=== PATIENT | male | born 1960 | race Caucasian/White ===

== ENCOUNTER 2017-02-17 06:28 | Emergency (ER) | payer MEDICAID ==
[~2017-02-17] VITALS: Ht 177.8 cm; Wt 72.0 kg
[~2017-02-17 06:28] MED LIST: HYDR-3965 PO; LORA0.5T PO; METH5TAB2 PO; NO HOME MEDS
[2017-02-17] MEDS ORDERED: HYDROcodone/acetaminophen 5mg/325mg tablet PO ONE (08:35)
[2017-02-17 09:23] VITALS: BP 126/100
== END 2017-02-17 09:05 | disposition home or self-care (01) ==
LOC: ER 06:29
DX: G89.29 Other chronic pain (principal); M79.605 Pain in left leg; I10 Essential (primary) hypertension; F17.200 Nicotine dependence, unspecified, uncomplicated; F15.10 Other stimulant abuse, uncomplicated; F11.10 Opioid abuse, uncomplicated; M19.90 Unspecified osteoarthritis, unspecified site; G43.909 Migraine, unspecified, not intractable, without status migrainosus; Z86.19 Personal history of other infectious and parasitic diseases; Z98.890 Other specified postprocedural states
CPT/HCPCS: 99284

== ENCOUNTER 2017-02-20 15:17 | Emergency (ER) | payer MEDICAID ==
[~2017-02-20] VITALS: Ht 177.8 cm; Wt 68.2 kg
[2017-02-20 17:41] VITALS: BP 144/74
== END 2017-02-20 17:45 | disposition home or self-care (01) ==
LOC: ER 15:18
DX: G89.29 Other chronic pain (principal); M79.605 Pain in left leg; R10.30 Lower abdominal pain, unspecified; G43.909 Migraine, unspecified, not intractable, without status migrainosus; I10 Essential (primary) hypertension; M19.90 Unspecified osteoarthritis, unspecified site; F15.10 Other stimulant abuse, uncomplicated; F11.10 Opioid abuse, uncomplicated; Z79.899 Other long term (current) drug therapy; Z98.890 Other specified postprocedural states; Z56.0 Unemployment, unspecified
CPT/HCPCS: 99284

== ENCOUNTER 2017-03-08 09:59 | Inpatient (IN) | payer MEDICAID ==
[~2017-03-08] VITALS: Ht 177.8 cm; Wt 72.7 kg
[2017-03-08] MEDS ORDERED: ketorolac trometh inj. 60 MG/2 ML VIAL IM ONE (11:10)
[2017-03-08 12:41] LABS: BASOPHILS % (AUTO) 0.9 % (0-1); EOSINOPHILS # (AUTO) 0.1 X10'3 (0-0.9); EOSINOPHILS % (AUTO) 2.3 % (0-6); HEMATOCRIT 31.1 % (42.0-52.0); HEMOGLOBIN 10.3 g/dl (14.0-17.9); LYMPHOCYTES % (AUTO) 20.6 % (21-51); MEAN CORPUSCULAR HEMOGLOBIN 23.5 PG (27.0-31.0); MEAN CORPUSCULAR HGB CONC 32.9 % (33.0-36.5); MEAN CORPUSCULAR VOLUME 71.4 FL (78-98); MEAN PLATELET VOLUME 6.9 FL (7.4-10.4); MONOCYTES # (AUTO) 0.3 X10'3 (0-0.9); MONOCYTES % (AUTO) 6.4 % (2-12); NEUTROPHILS # (AUTO) 3.4 X10'3 (1.8-7.7); NEUTROPHILS % (AUTO) 69.8 % (42-75); PLATELET COUNT 230 X10'3 (140-440); RED BLOOD COUNT 4.36 X10'6 (4.70-6.10); RED CELL DISTRIBUTION WIDTH 22.1 % (11.5-14.5); WHITE BLOOD COUNT 4.9 X10'3 (4.5-11.0)
[2017-03-08 12:50] LABS: INR 1.2 INR; PARTIAL THROMBOPLASTIN TIME 29 SECONDS (22-32); PROTHROMBIN TIME 11.9 SECONDS (9.0-12.0)
[2017-03-08 13:00] LABS: ALBUMIN 1.9 G/DL (3.4-5.0); ANION GAP 8 (8-16); BILIRUBIN,TOTAL 0.8 MG/DL (0.1-1.0); BLOOD UREA NITROGEN 10 MG/DL (7-18); BUN/CREATININE RATIO 14.3 (5.4-32.0); CALCIUM 8.7 MG/DL (8.5-10.1); CHLORIDE 103 MMOL/L (99-107); POTASSIUM 3.8 MMOL/L (3.5-5.1); SODIUM 136 MMOL/L (135-145); TOTAL CARBON DIOXIDE 24.9 MMOL/L (24-32); TOTAL PROTEIN 7.5 G/DL (6.4-8.2); eGFR > 90 ML/MIN
[2017-03-08 13:01] LABS: ALANINE AMINOTRANSFERASE 34 U/L (12-78); ALBUMIN/GLOBULIN RATIO 0.3 (1.1-1.5); ALKALINE PHOSPHATASE 537 IU/L (46-116); ASPARTATE AMINO TRANSFERASE 52 U/L (10-37); GLUCOSE 92 MG/DL (70-104)
[2017-03-08 13:39] LABS: GLUCOSE, URINE NEGATIVE (Neg); KETONES,URINE TRACE mg/dl (Neg); LEUKOCYTE ESTERASE ,URINE NEGATIVE (Neg); NITRITES, URINE NEGATIVE (Neg); OCCULT BLOOD,URINE NEGATIVE (Neg); PH,URINE 5.5 (4.8-8.0); PROTEIN,URINE TRACE mg/dl (Neg); UROBILINOGEN,URINE >=8.0 E.U/dL (0.2-1.0)
[2017-03-08 13:50] LABS: UA COLLECTION TYPE CLN CATCH MIDSTREAM
[2017-03-08 13:51] LABS: CLARITY,URINE SLIGHTLY CLOUDY (Clear); COLOR,URINE DARK YELLOW (Yellow)
[2017-03-08 13:52] LABS: BACTERIA,URINE NONE SEEN /HPF (Neg); CAL OXALATE CRYSTALS 3+ /HPF (NEGATIVE); MUCUS STRANDS MANY /LPF (Neg); RBC,URINE NONE SEEN /HPF (0-2); SQUAMOUS EPITHELIAL CELL,UR FEW /LPF (FEW); WBC,URINE 0-4 /HPF (0-4)
[2017-03-08] MEDS ORDERED: morphine 2 MG/ML inj. syringe IV PRN (15:00)
[2017-03-08] MEDS ORDERED: magnesium hydroxide 30ml (MOM) UD suspension PO PRN (15:00)
[2017-03-08] MEDS ORDERED: acetaminophen 325mg tablet PO PRN (15:00)
[2017-03-08] MEDS ORDERED: vancomycin/NS 1 GM ADD-VANTAGE 250 ML X 1 DOSE IV ONE (15:15)
[2017-03-08 15:30] VITALS: BP 138/94
[2017-03-08] MEDS: normal saline 1000ml 1,000 ML IV SCH ×2 (16:23→23:57)
[2017-03-08] MEDS: morphine 2 MG/ML inj. syringe IV PRN ×2 (16:38→20:38)
[2017-03-08 18:00] VITALS: BP 125/67
[2017-03-08 18:30] VITALS: BP 125/67
[2017-03-08 19:17] LABS: URINE AMPHETAMINE SCREEN POSITIVE (Neg); URINE BARBITUATE SCREEN NEGATIVE (Neg); URINE BENZODIAZEPINES SCREEN NEGATIVE (Neg); URINE CANNABINOID SCREEN NEGATIVE (Neg); URINE COCAINE SCREEN NEGATIVE (Neg); URINE METHADONE SCREEN NEGATIVE (Neg); URINE OPIATE SCREEN NEGATIVE (Neg); URINE PHENCYCLIDINE SCREEN NEGATIVE (Neg)
[2017-03-08] MEDS: heparin, porcine 5000 units/ml vial SQ SCH (20:38)
[2017-03-08 22:30] VITALS: BP 112/61
[2017-03-08] MEDS ORDERED: HYDROmorphone 1 mg/ml syringe IV PRN (22:45)
[2017-03-08] MEDS ORDERED: vancomycin/NS 1 GM ADD-VANTAGE 250 ML IV SCH (23:00)
[2017-03-08] MEDS: HYDROmorphone inj. 0.5 MG/0.5 ML DISP.SYRIN IV PRN (23:57)
[2017-03-09] MEDS: HYDROmorphone inj. 0.5 MG/0.5 ML DISP.SYRIN IV PRN (05:15)
[2017-03-09 06:00] VITALS: BP 124/70
[2017-03-09 06:28] LABS: BASOPHILS % (AUTO) 1.3 % (0-1); EOSINOPHILS # (AUTO) 0.1 X10'3 (0-0.9); EOSINOPHILS % (AUTO) 3.6 % (0-6); HEMATOCRIT 26.8 % (42.0-52.0); HEMOGLOBIN 8.9 g/dl (14.0-17.9); LYMPHOCYTES # (AUTO) 1.1 X10'3 (1.1-4.8); LYMPHOCYTES % (AUTO) 36.3 % (21-51); MEAN CORPUSCULAR HEMOGLOBIN 23.7 PG (27.0-31.0); MEAN CORPUSCULAR HGB CONC 33.3 % (33.0-36.5); MEAN CORPUSCULAR VOLUME 71.1 FL (78-98); MEAN PLATELET VOLUME 6.9 FL (7.4-10.4); MONOCYTES # (AUTO) 0.3 X10'3 (0-0.9); MONOCYTES % (AUTO) 10.6 % (2-12); NEUTROPHILS # (AUTO) 1.5 X10'3 (1.8-7.7); NEUTROPHILS % (AUTO) 48.2 % (42-75); PLATELET COUNT 192 X10'3 (140-440); RED BLOOD COUNT 3.77 X10'6 (4.70-6.10); RED CELL DISTRIBUTION WIDTH 22.1 % (11.5-14.5)
[2017-03-09 06:39] LABS: ALBUMIN 1.5 G/DL (3.4-5.0); ANION GAP 4 (8-16); BLOOD UREA NITROGEN 13 MG/DL (7-18); BUN/CREATININE RATIO 18.6 (5.4-32.0); CHLORIDE 106 MMOL/L (99-107); POTASSIUM 4.1 MMOL/L (3.5-5.1); SODIUM 136 MMOL/L (135-145); TOTAL CARBON DIOXIDE 25.6 MMOL/L (24-32); eGFR > 90 ML/MIN
[2017-03-09 06:44] LABS: GLUCOSE 89 MG/DL (70-104)
[2017-03-09] MEDS: heparin, porcine 5000 units/ml vial SQ SCH ×2 (08:41→20:43)
[2017-03-09] MEDS ORDERED: HYDROmorphone inj. 0.5 MG/0.5 ML DISP.SYRIN ONE ×2 (09:23→14:43)
[2017-03-09 10:55] VITALS: BP 149/88
[2017-03-09] MEDS: normal saline 1000ml 1,000 ML IV SCH ×2 (10:58→20:58)
[2017-03-09] MEDS: LORazepam 2 mg/ml vial IV PRN ×2 (12:57→17:45)
[2017-03-09] MEDS: cyclobenzaprine 10mg tablet PO PRN (12:57)
[2017-03-09] MEDS ORDERED: HYDROmorphone 2mg/ml vial IV PRN (15:20)
[2017-03-09 18:00] VITALS: BP 123/74
[2017-03-09] MEDS: HYDROmorphone 2mg/ml vial IV PRN (20:26)
[2017-03-09] MEDS ORDERED: ringers solution, lacted 1,000 ML IV ONE (21:37)
[2017-03-09 22:00] VITALS: BP 137/81
[2017-03-09] MEDS ORDERED: VANCOMYCIN LEVEL IV NR (22:30)
[2017-03-10] VITALS (17 sets, daily range): BP systolic 92–155; BP diastolic 62–96
[2017-03-10] MEDS: ondansetron/PF 4mg/2ml inj IV PRN (00:06)
[2017-03-10] MEDS: LORazepam 2 mg/ml vial IV PRN ×5 (00:06→21:41)
[2017-03-10] MEDS: normal saline 1000ml 1,000 ML IV SCH ×3 (00:08→21:41)
[2017-03-10] MEDS: HYDROmorphone 2mg/ml vial IV PRN ×5 (00:59→21:42)
[2017-03-10] MEDS: cyclobenzaprine 10mg tablet PO PRN ×2 (02:23→13:32)
[2017-03-10] MEDS ORDERED: famotidine 20mg tablet PO ONE (06:00)
[2017-03-10 06:43] LABS: BASOPHILS % (AUTO) 0.9 % (0-1); EOSINOPHILS # (AUTO) 0.1 X10'3 (0-0.9); LYMPHOCYTES # (AUTO) 1.1 X10'3 (1.1-4.8); LYMPHOCYTES % (AUTO) 23.9 % (21-51); MEAN CORPUSCULAR HEMOGLOBIN 23.9 PG (27.0-31.0); MEAN CORPUSCULAR HGB CONC 33.3 % (33.0-36.5); MEAN CORPUSCULAR VOLUME 71.8 FL (78-98); MEAN PLATELET VOLUME 7.4 FL (7.4-10.4); MONOCYTES # (AUTO) 0.4 X10'3 (0-0.9); MONOCYTES % (AUTO) 8.2 % (2-12); NEUTROPHILS # (AUTO) 2.9 X10'3 (1.8-7.7); PLATELET COUNT 192 X10'3 (140-440); RED BLOOD COUNT 4.18 X10'6 (4.70-6.10); RED CELL DISTRIBUTION WIDTH 22.2 % (11.5-14.5); WHITE BLOOD COUNT 4.4 X10'3 (4.5-11.0)
[2017-03-10 06:55] LABS: INR 1.2 INR; PARTIAL THROMBOPLASTIN TIME 29 SECONDS (22-32)
[2017-03-10 06:59] LABS: ALBUMIN 1.8 G/DL (3.4-5.0); ANION GAP 8 (8-16); BLOOD UREA NITROGEN 9 MG/DL (7-18); CALCIUM 8.4 MG/DL (8.5-10.1); CHLORIDE 103 MMOL/L (99-107); GLUCOSE 93 MG/DL (70-104); POTASSIUM 4.2 MMOL/L (3.5-5.1); SODIUM 134 MMOL/L (135-145); TOTAL CARBON DIOXIDE 23.2 MMOL/L (24-32); eGFR > 90 ML/MIN
[2017-03-10] MEDS ORDERED: BUPIVAcaine/PF 2.5 mg/ml (0.25%) 30ml vial ONE (07:41)
[2017-03-10] MEDS ORDERED: vancomycin 1,000mg inj ONE (07:53)
[2017-03-10] MEDS: heparin, porcine 5000 units/ml vial SQ SCH ×2 (08:00→20:46)
[2017-03-10] MEDS ORDERED: midazolam 2 mg/2 ml injection ONE ×2 (08:10→08:15)
[2017-03-10] MEDS ORDERED: fentaNYL/PF 50MCG/1 ML 2ML syringe ONE (08:10)
[2017-03-10] MEDS ORDERED: BUPIVAcaine/PF 7.5mg/ml (0.75%) 10ml vial ONE (08:14)
[2017-03-10] MEDS ORDERED: propofol inj 20 ML IV ONE (08:30)
[2017-03-10] MEDS ORDERED: ringers solution, lacted 1,000 ML IV SCH (09:00)
[2017-03-10] MEDS ORDERED: meperidine/PF 25mg/ml syringe IV PRN ×3 (09:00)
[2017-03-10] MEDS ORDERED: proCHLORperazine 10 MG/2 ml inj IV PRN (09:00)
[2017-03-10] MEDS ORDERED: morphine 2 MG/ML inj. syringe IV PRN ×2 (09:00)
[2017-03-10] MEDS ORDERED: ondansetron/PF 4mg/2ml inj IV PRN (09:00)
[2017-03-10] MEDS: HYDROcodone/acetaminophen 10/325mg tab PO PRN (16:02)
[2017-03-10] MEDS ORDERED: magnesium hydroxide 30ml (MOM) UD suspension PO ONE (18:25)
[2017-03-11] MEDS: LORazepam 2 mg/ml vial IV PRN (00:32)
[2017-03-11] MEDS: HYDROmorphone 2mg/ml vial IV PRN ×6 (01:53→23:28)
[2017-03-11 02:00] VITALS: BP 121/74
[2017-03-11 06:00] VITALS: BP 124/79
[2017-03-11 06:08] LABS: BASOPHILS % (AUTO) 0.7 % (0-1); EOSINOPHILS # (AUTO) 0.1 X10'3 (0-0.9); EOSINOPHILS % (AUTO) 1.6 % (0-6); HEMATOCRIT 26.6 % (42.0-52.0); HEMOGLOBIN 8.8 g/dl (14.0-17.9); LYMPHOCYTES % (AUTO) 28.8 % (21-51); MEAN CORPUSCULAR HEMOGLOBIN 24.1 PG (27.0-31.0); MEAN CORPUSCULAR HGB CONC 33.2 % (33.0-36.5); MEAN CORPUSCULAR VOLUME 72.5 FL (78-98); MEAN PLATELET VOLUME 7.5 FL (7.4-10.4); MONOCYTES # (AUTO) 0.6 X10'3 (0-0.9); MONOCYTES % (AUTO) 8.6 % (2-12); NEUTROPHILS # (AUTO) 4.2 X10'3 (1.8-7.7); NEUTROPHILS % (AUTO) 60.3 % (42-75); PLATELET COUNT 208 X10'3 (140-440); RED BLOOD COUNT 3.67 X10'6 (4.70-6.10); RED CELL DISTRIBUTION WIDTH 22.5 % (11.5-14.5)
[2017-03-11 06:26] LABS: ALBUMIN 1.6 G/DL (3.4-5.0); ANION GAP 9 (8-16); BLOOD UREA NITROGEN 12 MG/DL (7-18); CALCIUM 8.7 MG/DL (8.5-10.1); CHLORIDE 104 MMOL/L (99-107); POTASSIUM 4.8 MMOL/L (3.5-5.1); SODIUM 135 MMOL/L (135-145); TOTAL CARBON DIOXIDE 21.8 MMOL/L (24-32); eGFR > 90 ML/MIN
[2017-03-11 06:34] LABS: GLUCOSE 98 MG/DL (70-104)
[2017-03-11] MEDS: heparin, porcine 5000 units/ml vial SQ SCH ×2 (08:48→20:00)
[2017-03-11 10:30] VITALS: BP 129/75
[2017-03-11] MEDS: cyclobenzaprine 10mg tablet PO PRN (12:34)
[2017-03-11] MEDS: normal saline 1000ml 1,000 ML IV SCH ×2 (12:58→21:42)
[2017-03-11 14:00] VITALS: BP 129/75
[2017-03-11] MEDS ORDERED: vancomycin/NS 1 GM ADD-VANTAGE 250 ML IV SCH (16:40)
[2017-03-11] MEDS: vancomycin/NS 1 GM ADD-VANTAGE 250 ML IV SCH (17:38)
[2017-03-11 18:00] VITALS: BP 129/65
[2017-03-11] MEDS: lactulose 20gm/30ml cup PO SCH (21:41)
[2017-03-11 22:00] VITALS: BP 131/77
[2017-03-12] VITALS (12 sets, daily range): BP systolic 112–138; BP diastolic 59–108
[2017-03-12] MEDS: vancomycin/NS 1 GM ADD-VANTAGE 250 ML IV SCH ×3 (01:14→16:50)
[2017-03-12] MEDS: HYDROmorphone 2mg/ml vial IV PRN ×3 (03:28→22:30)
[2017-03-12] MEDS: HYDROcodone/acetaminophen 10/325mg tab PO PRN ×2 (04:53→08:25)
[2017-03-12 05:36] LABS: BASOPHILS % (AUTO) 0.8 % (0-1); EOSINOPHILS # (AUTO) 0.1 X10'3 (0-0.9); EOSINOPHILS % (AUTO) 1.9 % (0-6); LYMPHOCYTES # (AUTO) 1.5 X10'3 (1.1-4.8); LYMPHOCYTES % (AUTO) 29.9 % (21-51); MEAN CORPUSCULAR HEMOGLOBIN 24.3 PG (27.0-31.0); MEAN CORPUSCULAR HGB CONC 33.7 % (33.0-36.5); MEAN CORPUSCULAR VOLUME 72.1 FL (78-98); MEAN PLATELET VOLUME 7.4 FL (7.4-10.4); MONOCYTES # (AUTO) 0.5 X10'3 (0-0.9); NEUTROPHILS # (AUTO) 2.8 X10'3 (1.8-7.7); NEUTROPHILS % (AUTO) 56.4 % (42-75); PLATELET COUNT 191 X10'3 (140-440); RED CELL DISTRIBUTION WIDTH 22.9 % (11.5-14.5)
[2017-03-12 05:39] LABS: HEMOGLOBIN 6.8 g/dl (14.0-17.9)
[2017-03-12 05:40] LABS: HEMATOCRIT 20.2 % (42.0-52.0)
[2017-03-12 06:25] LABS: ALBUMIN 1.4 G/DL (3.4-5.0); ANION GAP 7 (8-16); BLOOD UREA NITROGEN 13 MG/DL (7-18); BUN/CREATININE RATIO 18.6 (5.4-32.0); CHLORIDE 104 MMOL/L (99-107); POTASSIUM 4.1 MMOL/L (3.5-5.1); SODIUM 135 MMOL/L (135-145); TOTAL CARBON DIOXIDE 23.9 MMOL/L (24-32); eGFR > 90 ML/MIN
[2017-03-12 06:39] LABS: GLUCOSE 104 MG/DL (70-104)
[2017-03-12] MEDS: heparin, porcine 5000 units/ml vial SQ SCH ×2 (07:44→20:00)
[2017-03-12] MEDS: lactulose 20gm/30ml cup PO SCH ×3 (08:00→21:00)
[2017-03-12] MEDS: normal saline 1000ml 1,000 ML IV SCH ×2 (11:11→22:33)
[2017-03-12] MEDS ORDERED: VANCOMYCIN LEVEL IV ONE (16:30)
[2017-03-12] MEDS: lactobacillus rhamnosus 10,000 MMU CELLS/CAPSULE PO SCH (16:50)
[2017-03-12 19:24] LABS: BASOPHILS % (AUTO) 0.6 % (0-1); EOSINOPHILS # (AUTO) 0.1 X10'3 (0-0.9); EOSINOPHILS % (AUTO) 2.9 % (0-6); HEMATOCRIT 26.1 % (42.0-52.0); HEMOGLOBIN 8.7 g/dl (14.0-17.9); LYMPHOCYTES # (AUTO) 1.1 X10'3 (1.1-4.8); LYMPHOCYTES % (AUTO) 26.5 % (21-51); MEAN CORPUSCULAR HEMOGLOBIN 25.6 PG (27.0-31.0); MEAN CORPUSCULAR HGB CONC 33.5 % (33.0-36.5); MEAN CORPUSCULAR VOLUME 76.6 FL (78-98); MEAN PLATELET VOLUME 7.1 FL (7.4-10.4); MONOCYTES # (AUTO) 0.4 X10'3 (0-0.9); NEUTROPHILS # (AUTO) 2.6 X10'3 (1.8-7.7); PLATELET COUNT 173 X10'3 (140-440); RED BLOOD COUNT 3.41 X10'6 (4.70-6.10); RED CELL DISTRIBUTION WIDTH 22.5 % (11.5-14.5); WHITE BLOOD COUNT 4.3 X10'3 (4.5-11.0)
[2017-03-12] MEDS: mag hydrox/Alum hydrox/simeth 30ml oral suspension PO PRN (20:00)
[2017-03-12] MEDS: LORazepam 2 mg/ml vial IV PRN (20:00)
[2017-03-13] MEDS: vancomycin/NS 1 GM ADD-VANTAGE 250 ML IV SCH ×3 (00:48→16:55)
[2017-03-13] MEDS: HYDROmorphone 2mg/ml vial IV PRN ×2 (02:09→06:06)
[2017-03-13] MEDS: normal saline 1000ml 1,000 ML IV SCH ×3 (04:58→20:55)
[2017-03-13 05:00] VITALS: BP 131/75
[2017-03-13 06:10] LABS: BASOPHILS % (AUTO) 0.7 % (0-1); EOSINOPHILS # (AUTO) 0.1 X10'3 (0-0.9); EOSINOPHILS % (AUTO) 2.2 % (0-6); HEMATOCRIT 25.2 % (42.0-52.0); HEMOGLOBIN 8.6 g/dl (14.0-17.9); LYMPHOCYTES # (AUTO) 1.2 X10'3 (1.1-4.8); LYMPHOCYTES % (AUTO) 28.2 % (21-51); MEAN CORPUSCULAR HEMOGLOBIN 25.7 PG (27.0-31.0); MEAN CORPUSCULAR VOLUME 75.7 FL (78-98); MEAN PLATELET VOLUME 7.1 FL (7.4-10.4); MONOCYTES # (AUTO) 0.4 X10'3 (0-0.9); MONOCYTES % (AUTO) 10.1 % (2-12); NEUTROPHILS # (AUTO) 2.5 X10'3 (1.8-7.7); NEUTROPHILS % (AUTO) 58.8 % (42-75); PLATELET COUNT 181 X10'3 (140-440); RED BLOOD COUNT 3.32 X10'6 (4.70-6.10); RED CELL DISTRIBUTION WIDTH 22.1 % (11.5-14.5); WHITE BLOOD COUNT 4.3 X10'3 (4.5-11.0)
[2017-03-13 06:31] LABS: ALBUMIN 1.4 G/DL (3.4-5.0); ANION GAP 6 (8-16); BLOOD UREA NITROGEN 9 MG/DL (7-18); CHLORIDE 103 MMOL/L (99-107); POTASSIUM 3.8 MMOL/L (3.5-5.1); SODIUM 133 MMOL/L (135-145); TOTAL CARBON DIOXIDE 24.3 MMOL/L (24-32); eGFR > 90 ML/MIN
[2017-03-13 06:40] LABS: GLUCOSE 89 MG/DL (70-104)
[2017-03-13] MEDS: lactulose 20gm/30ml cup PO SCH ×3 (08:00→20:59)
[2017-03-13] MEDS: heparin, porcine 5000 units/ml vial SQ SCH ×2 (08:00→20:00)
[2017-03-13] MEDS: lactobacillus rhamnosus 10,000 MMU CELLS/CAPSULE PO SCH ×2 (08:30→16:55)
[2017-03-13] MEDS: HYDROcodone/acetaminophen 10/325mg tab PO PRN ×3 (08:39→16:55)
[2017-03-13 10:00] VITALS: BP 129/79
[2017-03-13 10:19] LABS: BASOPHILS % (AUTO) 0.8 % (0-1); EOSINOPHILS # (AUTO) 0.1 X10'3 (0-0.9); EOSINOPHILS % (AUTO) 2.5 % (0-6); HEMATOCRIT 24.6 % (42.0-52.0); HEMOGLOBIN 8.3 g/dl (14.0-17.9); LYMPHOCYTES # (AUTO) 1.1 X10'3 (1.1-4.8); LYMPHOCYTES % (AUTO) 29.2 % (21-51); MEAN CORPUSCULAR HEMOGLOBIN 25.5 PG (27.0-31.0); MEAN CORPUSCULAR HGB CONC 33.6 % (33.0-36.5); MEAN CORPUSCULAR VOLUME 75.7 FL (78-98); MEAN PLATELET VOLUME 7.3 FL (7.4-10.4); MONOCYTES # (AUTO) 0.4 X10'3 (0-0.9); MONOCYTES % (AUTO) 10.4 % (2-12); NEUTROPHILS # (AUTO) 2.1 X10'3 (1.8-7.7); NEUTROPHILS % (AUTO) 57.1 % (42-75); PLATELET COUNT 178 X10'3 (140-440); RED BLOOD COUNT 3.25 X10'6 (4.70-6.10); WHITE BLOOD COUNT 3.8 X10'3 (4.5-11.0)
[2017-03-13] MEDS ORDERED: LIDOcaine 1% 30ml preserv. free vial IJ ONE (11:10)
[2017-03-13 11:40] VITALS: BP 133/62
[2017-03-13 11:59] VITALS: BP 128/78
[2017-03-13] MEDS: cyclobenzaprine 10mg tablet PO PRN (16:55)
[2017-03-13 18:00] VITALS: BP 110/71
[2017-03-13] MEDS ORDERED: oxyCODONE IR 5mg (immed. release) tablet PO PRN (18:05)
[2017-03-13 19:37] LABS: BASOPHILS % (AUTO) 0.7 % (0-1); EOSINOPHILS # (AUTO) 0.1 X10'3 (0-0.9); EOSINOPHILS % (AUTO) 3.5 % (0-6); HEMATOCRIT 25.2 % (42.0-52.0); HEMOGLOBIN 8.5 g/dl (14.0-17.9); LYMPHOCYTES # (AUTO) 1.1 X10'3 (1.1-4.8); LYMPHOCYTES % (AUTO) 25.8 % (21-51); MEAN CORPUSCULAR HEMOGLOBIN 25.6 PG (27.0-31.0); MEAN CORPUSCULAR HGB CONC 33.6 % (33.0-36.5); MEAN CORPUSCULAR VOLUME 76.2 FL (78-98); MEAN PLATELET VOLUME 7.2 FL (7.4-10.4); MONOCYTES # (AUTO) 0.5 X10'3 (0-0.9); MONOCYTES % (AUTO) 12.3 % (2-12); NEUTROPHILS # (AUTO) 2.4 X10'3 (1.8-7.7); NEUTROPHILS % (AUTO) 57.7 % (42-75); PLATELET COUNT 195 X10'3 (140-440); WHITE BLOOD COUNT 4.2 X10'3 (4.5-11.0)
[2017-03-13] MEDS: oxyCODONE IR 5mg (immed. release) tablet PO PRN (20:56)
[2017-03-13 22:00] VITALS: BP 117/68
[2017-03-14] MEDS: vancomycin/NS 1 GM ADD-VANTAGE 250 ML IV SCH ×3 (00:28→16:49)
[2017-03-14] MEDS: oxyCODONE IR 5mg (immed. release) tablet PO PRN ×5 (03:59→20:41)
[2017-03-14] MEDS: cyclobenzaprine 10mg tablet PO PRN ×2 (05:57→14:01)
[2017-03-14 06:00] VITALS: BP 128/80
[2017-03-14] MEDS: lactobacillus rhamnosus 10,000 MMU CELLS/CAPSULE PO SCH ×2 (07:30→16:41)
[2017-03-14 07:31] LABS: BASOPHILS % (AUTO) 0.9 % (0-1); EOSINOPHILS # (AUTO) 0.1 X10'3 (0-0.9); EOSINOPHILS % (AUTO) 3.5 % (0-6); HEMOGLOBIN 8.5 g/dl (14.0-17.9); LYMPHOCYTES # (AUTO) 1.2 X10'3 (1.1-4.8); LYMPHOCYTES % (AUTO) 29.2 % (21-51); MEAN CORPUSCULAR HEMOGLOBIN 25.6 PG (27.0-31.0); MEAN CORPUSCULAR HGB CONC 34.1 % (33.0-36.5); MEAN CORPUSCULAR VOLUME 75.2 FL (78-98); MONOCYTES # (AUTO) 0.5 X10'3 (0-0.9); MONOCYTES % (AUTO) 13.2 % (2-12); NEUTROPHILS # (AUTO) 2.2 X10'3 (1.8-7.7); NEUTROPHILS % (AUTO) 53.2 % (42-75); PLATELET COUNT 201 X10'3 (140-440); RED BLOOD COUNT 3.33 X10'6 (4.70-6.10); RED CELL DISTRIBUTION WIDTH 22.4 % (11.5-14.5); WHITE BLOOD COUNT 4.1 X10'3 (4.5-11.0)
[2017-03-14] MEDS: heparin, porcine 5000 units/ml vial SQ SCH ×2 (08:00→20:00)
[2017-03-14] MEDS: lactulose 20gm/30ml cup PO SCH ×3 (08:00→20:41)
[2017-03-14] MEDS: normal saline 1000ml 1,000 ML IV SCH ×2 (08:56→20:58)
[2017-03-14 10:00] VITALS: BP 128/71
[2017-03-14 11:31] LABS: EOSINOPHILS # (AUTO) 0.1 X10'3 (0-0.9); EOSINOPHILS % (AUTO) 3.1 % (0-6); HEMATOCRIT 26.3 % (42.0-52.0); HEMOGLOBIN 8.9 g/dl (14.0-17.9); LYMPHOCYTES # (AUTO) 1.1 X10'3 (1.1-4.8); LYMPHOCYTES % (AUTO) 24.8 % (21-51); MEAN CORPUSCULAR HEMOGLOBIN 25.5 PG (27.0-31.0); MEAN CORPUSCULAR VOLUME 75.2 FL (78-98); MONOCYTES # (AUTO) 0.5 X10'3 (0-0.9); MONOCYTES % (AUTO) 10.3 % (2-12); NEUTROPHILS # (AUTO) 2.7 X10'3 (1.8-7.7); NEUTROPHILS % (AUTO) 60.8 % (42-75); PLATELET COUNT 224 X10'3 (140-440); RED CELL DISTRIBUTION WIDTH 22.2 % (11.5-14.5); WHITE BLOOD COUNT 4.4 X10'3 (4.5-11.0)
[2017-03-14] MEDS: mag hydrox/Alum hydrox/simeth 30ml oral suspension PO PRN (16:48)
[2017-03-14 18:00] VITALS: BP 132/81
[2017-03-14 19:57] LABS: BASOPHILS % (AUTO) 0.9 % (0-1); EOSINOPHILS # (AUTO) 0.2 X10'3 (0-0.9); EOSINOPHILS % (AUTO) 3.1 % (0-6); HEMATOCRIT 30.4 % (42.0-52.0); LYMPHOCYTES # (AUTO) 1.5 X10'3 (1.1-4.8); LYMPHOCYTES % (AUTO) 28.3 % (21-51); MEAN CORPUSCULAR HEMOGLOBIN 25.5 PG (27.0-31.0); MEAN CORPUSCULAR VOLUME 77.2 FL (78-98); MEAN PLATELET VOLUME 6.9 FL (7.4-10.4); MONOCYTES # (AUTO) 0.6 X10'3 (0-0.9); MONOCYTES % (AUTO) 12.2 % (2-12); NEUTROPHILS % (AUTO) 55.5 % (42-75); PLATELET COUNT 229 X10'3 (140-440); RED BLOOD COUNT 3.93 X10'6 (4.70-6.10); RED CELL DISTRIBUTION WIDTH 22.8 % (11.5-14.5); WHITE BLOOD COUNT 5.3 X10'3 (4.5-11.0)
[2017-03-14] MEDS: ondansetron/PF 4mg/2ml inj IV PRN (20:52)
[2017-03-14 22:00] VITALS: BP 132/80
[2017-03-15] MEDS: oxyCODONE IR 5mg (immed. release) tablet PO PRN ×6 (00:46→21:37)
[2017-03-15] MEDS: mag hydrox/Alum hydrox/simeth 30ml oral suspension PO PRN ×2 (00:48→08:07)
[2017-03-15] MEDS: vancomycin/NS 1 GM ADD-VANTAGE 250 ML IV SCH ×3 (00:49→16:44)
[2017-03-15] MEDS: ondansetron/PF 4mg/2ml inj IV PRN (04:54)
[2017-03-15 05:00] VITALS: BP 108/57
[2017-03-15 07:16] LABS: BASOPHILS % (AUTO) 0.7 % (0-1); EOSINOPHILS # (AUTO) 0.1 X10'3 (0-0.9); EOSINOPHILS % (AUTO) 1.9 % (0-6); LYMPHOCYTES % (AUTO) 17.7 % (21-51); MEAN CORPUSCULAR HEMOGLOBIN 25.4 PG (27.0-31.0); MEAN CORPUSCULAR HGB CONC 33.3 % (33.0-36.5); MEAN CORPUSCULAR VOLUME 76.3 FL (78-98); MONOCYTES # (AUTO) 0.5 X10'3 (0-0.9); MONOCYTES % (AUTO) 9.2 % (2-12); NEUTROPHILS # (AUTO) 3.8 X10'3 (1.8-7.7); NEUTROPHILS % (AUTO) 70.5 % (42-75); PLATELET COUNT 231 X10'3 (140-440); RED BLOOD COUNT 3.54 X10'6 (4.70-6.10); RED CELL DISTRIBUTION WIDTH 23.7 % (11.5-14.5); WHITE BLOOD COUNT 5.4 X10'3 (4.5-11.0)
[2017-03-15] MEDS: lactulose 20gm/30ml cup PO SCH ×3 (08:00→20:17)
[2017-03-15] MEDS: heparin, porcine 5000 units/ml vial SQ SCH ×2 (08:08→20:17)
[2017-03-15] MEDS: lactobacillus rhamnosus 10,000 MMU CELLS/CAPSULE PO SCH ×2 (08:17→16:39)
[2017-03-15 18:50] VITALS: BP 126/71
[2017-03-15 22:00] VITALS: BP 125/78
[2017-03-16] MEDS: vancomycin/NS 1 GM ADD-VANTAGE 250 ML IV SCH ×3 (01:23→17:56)
[2017-03-16] MEDS: oxyCODONE IR 5mg (immed. release) tablet PO PRN ×6 (01:25→22:05)
[2017-03-16 03:37] LABS: ALBUMIN 1.2 G/DL (3.4-5.0); ANION GAP 3 (8-16); BLOOD UREA NITROGEN 8 MG/DL (7-18); BUN/CREATININE RATIO 11.4 (5.4-32.0); CALCIUM 7.7 MG/DL (8.5-10.1); CHLORIDE 105 MMOL/L (99-107); SODIUM 135 MMOL/L (135-145); TOTAL CARBON DIOXIDE 27.1 MMOL/L (24-32); eGFR > 90 ML/MIN
[2017-03-16 03:56] LABS: GLUCOSE 98 MG/DL (70-104)
[2017-03-16 05:00] VITALS: BP 126/75
[2017-03-16] MEDS: lactobacillus rhamnosus 10,000 MMU CELLS/CAPSULE PO SCH ×2 (08:53→17:55)
[2017-03-16] MEDS: heparin, porcine 5000 units/ml vial SQ SCH ×2 (08:53→21:00)
[2017-03-16] MEDS: lactulose 20gm/30ml cup PO SCH ×3 (08:55→21:00)
[2017-03-16 10:00] VITALS: BP 128/79
[2017-03-16] MEDS ORDERED: HYDROmorphone 1 mg/ml syringe IV PRN (11:05)
[2017-03-16] MEDS: cyclobenzaprine 10mg tablet PO PRN (15:06)
[2017-03-16 18:00] VITALS: BP 124/69
[2017-03-16] MEDS: LORazepam 2 mg/ml vial IV PRN (21:12)
[2017-03-16 22:00] VITALS: BP 135/80
[2017-03-17] MEDS: vancomycin/NS 1 GM ADD-VANTAGE 250 ML IV SCH ×3 (01:12→17:53)
[2017-03-17] MEDS: oxyCODONE IR 5mg (immed. release) tablet PO PRN ×5 (01:54→20:17)
[2017-03-17 04:11] LABS: BASOPHILS # (AUTO) 0.1 X10'3 (0-0.2); BASOPHILS % (AUTO) 0.9 % (0-1); EOSINOPHILS # (AUTO) 0.2 X10'3 (0-0.9); EOSINOPHILS % (AUTO) 3.3 % (0-6); HEMATOCRIT 24.4 % (42.0-52.0); LYMPHOCYTES # (AUTO) 1.2 X10'3 (1.1-4.8); LYMPHOCYTES % (AUTO) 22.4 % (21-51); MEAN CORPUSCULAR HEMOGLOBIN 25.4 PG (27.0-31.0); MEAN CORPUSCULAR VOLUME 77.2 FL (78-98); MEAN PLATELET VOLUME 6.8 FL (7.4-10.4); MONOCYTES # (AUTO) 0.7 X10'3 (0-0.9); MONOCYTES % (AUTO) 12.8 % (2-12); NEUTROPHILS # (AUTO) 3.4 X10'3 (1.8-7.7); NEUTROPHILS % (AUTO) 60.6 % (42-75); PLATELET COUNT 242 X10'3 (140-440); RED BLOOD COUNT 3.16 X10'6 (4.70-6.10); RED CELL DISTRIBUTION WIDTH 23.2 % (11.5-14.5); WHITE BLOOD COUNT 5.6 X10'3 (4.5-11.0)
[2017-03-17 04:43] LABS: ALANINE AMINOTRANSFERASE 46 U/L (12-78); ALBUMIN 1.2 G/DL (3.4-5.0); ALBUMIN/GLOBULIN RATIO 0.3 (1.1-1.5); ALKALINE PHOSPHATASE 493 IU/L (46-116); ANION GAP 7 (8-16); ASPARTATE AMINO TRANSFERASE 68 U/L (10-37); BLOOD UREA NITROGEN 8 MG/DL (7-18); BUN/CREATININE RATIO 13.3 (5.4-32.0); CALCIUM 7.7 MG/DL (8.5-10.1); CHLORIDE 103 MMOL/L (99-107); SODIUM 136 MMOL/L (135-145); TOTAL CARBON DIOXIDE 25.9 MMOL/L (24-32); TOTAL PROTEIN 5.7 G/DL (6.4-8.2); eGFR > 90 ML/MIN
[2017-03-17 04:47] LABS: GLUCOSE 99 MG/DL (70-104)
[2017-03-17 06:00] VITALS: BP 123/68
[2017-03-17] MEDS ORDERED: morphine 5 MG/ML injection IV PRN ×2 (06:25→12:00)
[2017-03-17] MEDS: lactobacillus rhamnosus 10,000 MMU CELLS/CAPSULE PO SCH ×2 (07:35→17:52)
[2017-03-17] MEDS: lactulose 20gm/30ml cup PO SCH ×3 (07:35→20:16)
[2017-03-17] MEDS: heparin, porcine 5000 units/ml vial SQ SCH ×2 (07:36→20:16)
[2017-03-17 10:00] VITALS: BP 134/65
[2017-03-17] MEDS: LORazepam 2 mg/ml vial IV PRN (14:10)
[2017-03-17] MEDS: cyclobenzaprine 10mg tablet PO PRN (15:50)
[2017-03-17] MEDS ORDERED: LORazepam 2 mg/ml vial IV PRN (17:00)
[2017-03-17] MEDS: morphine 2 MG/ML inj. syringe IV PRN ×2 (17:52→22:44)
[2017-03-17 19:00] VITALS: BP 126/75
[2017-03-17 22:00] VITALS: BP 126/71
[2017-03-18] MEDS: vancomycin/NS 1 GM ADD-VANTAGE 250 ML IV SCH ×3 (00:58→16:33)
[2017-03-18] MEDS: oxyCODONE IR 5mg (immed. release) tablet PO PRN ×4 (00:58→19:05)
[2017-03-18] MEDS: cyclobenzaprine 10mg tablet PO PRN ×2 (02:12→13:12)
[2017-03-18] MEDS: morphine 2 MG/ML inj. syringe IV PRN (03:24)
[2017-03-18 05:00] VITALS: BP 135/73
[2017-03-18 06:00] VITALS: BP 126/71
[2017-03-18 07:11] LABS: HEMATOCRIT 24.8 % (42.0-52.0); HEMOGLOBIN 8.2 g/dl (14.0-17.9); MEAN CORPUSCULAR HEMOGLOBIN 25.5 PG (27.0-31.0); MEAN CORPUSCULAR HGB CONC 33.2 % (33.0-36.5); MEAN CORPUSCULAR VOLUME 76.9 FL (78-98); MEAN PLATELET VOLUME 7.3 FL (7.4-10.4); PLATELET COUNT 271 X10'3 (140-440); RED BLOOD COUNT 3.23 X10'6 (4.70-6.10); RED CELL DISTRIBUTION WIDTH 22.8 % (11.5-14.5); WHITE BLOOD COUNT 6.2 X10'3 (4.5-11.0)
[2017-03-18] MEDS: lactobacillus rhamnosus 10,000 MMU CELLS/CAPSULE PO SCH ×2 (07:14→16:33)
[2017-03-18] MEDS: lactulose 20gm/30ml cup PO SCH ×3 (07:15→21:00)
[2017-03-18] MEDS: heparin, porcine 5000 units/ml vial SQ SCH ×2 (07:16→20:00)
[2017-03-18 07:44] LABS: ANISOCYTOSIS 3+; MICROCYTOSIS 2+; PLATELET ESTIMATE NORMAL; POLYCHROMASIA 1+; TOTAL CELLS COUNTED 100
[2017-03-18 10:00] VITALS: BP 140/77
[2017-03-18] MEDS: LORazepam 0.5 MG tablet PO PRN ×2 (10:03→19:05)
[2017-03-18] MEDS ORDERED: ketorolac tromethamine 15mg/ml inj. IV ONE (14:40)
[2017-03-18] MEDS ORDERED: ketorolac tromethamine 15mg/ml inj. IV PRN (14:55)
[2017-03-18 17:00] VITALS: BP 122/71
[2017-03-18] MEDS: LACTOSE-FREE FOOD 237ML (BOOST) PO SCH (18:00)
[2017-03-18] MEDS: famotidine 20mg tablet PO SCH (20:09)
[2017-03-18 22:00] VITALS: BP 128/71
[2017-03-19] MEDS: vancomycin/NS 1 GM ADD-VANTAGE 250 ML IV SCH ×3 (01:18→16:35)
[2017-03-19] MEDS: LORazepam 0.5 MG tablet PO PRN ×3 (02:19→20:17)
[2017-03-19] MEDS: oxyCODONE IR 5mg (immed. release) tablet PO PRN ×4 (02:19→19:07)
[2017-03-19 06:00] VITALS: BP 116/77
[2017-03-19 06:05] LABS: BASOPHILS % (AUTO) 0.5 % (0-1); EOSINOPHILS # (AUTO) 0.3 X10'3 (0-0.9); EOSINOPHILS % (AUTO) 5.6 % (0-6); HEMATOCRIT 23.1 % (42.0-52.0); HEMOGLOBIN 7.7 g/dl (14.0-17.9); LYMPHOCYTES # (AUTO) 1.2 X10'3 (1.1-4.8); LYMPHOCYTES % (AUTO) 19.7 % (21-51); MEAN CORPUSCULAR HEMOGLOBIN 25.5 PG (27.0-31.0); MEAN CORPUSCULAR HGB CONC 33.3 % (33.0-36.5); MEAN CORPUSCULAR VOLUME 76.7 FL (78-98); MEAN PLATELET VOLUME 7.1 FL (7.4-10.4); MONOCYTES # (AUTO) 0.7 X10'3 (0-0.9); MONOCYTES % (AUTO) 11.4 % (2-12); NEUTROPHILS # (AUTO) 3.8 X10'3 (1.8-7.7); NEUTROPHILS % (AUTO) 62.8 % (42-75); PLATELET COUNT 260 X10'3 (140-440); RED BLOOD COUNT 3.02 X10'6 (4.70-6.10); RED CELL DISTRIBUTION WIDTH 22.7 % (11.5-14.5)
[2017-03-19 06:22] LABS: ALBUMIN 1.2 G/DL (3.4-5.0); ANION GAP 4 (8-16); BLOOD UREA NITROGEN 12 MG/DL (7-18); CALCIUM 7.8 MG/DL (8.5-10.1); CHLORIDE 104 MMOL/L (99-107); POTASSIUM 4.3 MMOL/L (3.5-5.1); SODIUM 134 MMOL/L (135-145); TOTAL CARBON DIOXIDE 26.3 MMOL/L (24-32); eGFR > 90 ML/MIN
[2017-03-19 06:24] LABS: GLUCOSE 96 MG/DL (70-104)
[2017-03-19] MEDS: lactulose 20gm/30ml cup PO SCH ×3 (07:27→20:18)
[2017-03-19] MEDS: lactobacillus rhamnosus 10,000 MMU CELLS/CAPSULE PO SCH ×2 (07:27→16:35)
[2017-03-19] MEDS: heparin, porcine 5000 units/ml vial SQ SCH ×2 (07:28→20:18)
[2017-03-19] MEDS: famotidine 20mg tablet PO SCH ×2 (07:28→20:00)
[2017-03-19] MEDS: LACTOSE-FREE FOOD 237ML (BOOST) PO SCH ×3 (08:00→18:00)
[2017-03-19 10:00] VITALS: BP 140/72
[2017-03-19] MEDS: cyclobenzaprine 10mg tablet PO PRN (16:35)
[2017-03-19 18:30] VITALS: BP 131/75
[2017-03-19] MEDS: ondansetron/PF 4mg/2ml inj IV PRN (20:17)
[2017-03-19 22:00] VITALS: BP 131/77
== END 2017-03-19 22:00 | DRG 308 ==
LOC: ER 10:00 → ORTHO 4S 14:58 → PACU 03-10 08:58 → ORTHO 4S 03-10 11:49
PROVIDERS: ADMIT Family Medicine; ATTEND Family Medicine
PROC: 3E0U029 Introduction of Other Anti-infective into Joints, Open Approach (ICD-10-PCS; 2017-03-08)
PROC: 0QT70ZZ Resection of Left Upper Femur, Open Approach (ICD-10-PCS; principal; 2017-03-10 08:00)
PROC: 30233N1 Transfusion of Nonautologous Red Blood Cells into Peripheral Vein, Percutaneous Approach (ICD-10-PCS; 2017-03-12)
PROC: 0W9G3ZZ Drainage of Peritoneal Cavity, Percutaneous Approach (ICD-10-PCS; 2017-03-13)
DX: M84.652A Pathological fracture in other disease, left femur, initial encounter for fracture (principal); E43 Unspecified severe protein-calorie malnutrition; M86.152 Other acute osteomyelitis, left femur; R18.8 Other ascites; M00.852 Arthritis due to other bacteria, left hip; M87.252 Osteonecrosis due to previous trauma, left femur; K74.60 Unspecified cirrhosis of liver; E44.0 Moderate protein-calorie malnutrition; D62 Acute posthemorrhagic anemia; B19.20 Unspecified viral hepatitis C without hepatic coma; F41.8 Other specified anxiety disorders; F19.10 Other psychoactive substance abuse, uncomplicated; F11.10 Opioid abuse, uncomplicated; F17.210 Nicotine dependence, cigarettes, uncomplicated; I10 Essential (primary) hypertension; F32.9 Major depressive disorder, single episode, unspecified; F41.9 Anxiety disorder, unspecified; G43.909 Migraine, unspecified, not intractable, without status migrainosus; G89.29 Other chronic pain; F15.90 Other stimulant use, unspecified, uncomplicated; Z56.0 Unemployment, unspecified; Z79.899 Other long term (current) drug therapy; Z86.14 Personal history of Methicillin resistant Staphylococcus aureus infection; Z59.0 Homelessness; Z80.9 Family history of malignant neoplasm, unspecified; Z79.82 Long term (current) use of aspirin; Z79.01 Long term (current) use of anticoagulants; Z68.23 Body mass index [BMI] 23.0-23.9, adult
CPT/HCPCS: 36415; 36569; 49083; 71045; 73030; 73700; 76937; 80048; 80053; 80202; 80305; 81001; 82140; 85025; 85610; 85651; 85730; 86140; 86870; 86885; 86900; 86901; 86902; 86905; 86922; 87040; 87070; 87075; 87176; 93005; 96372; 97110; 97116; 97162; 97530; 97535; 99285; A4615; A6258; A6449; A6455; A7000; C1713; C1758; J1170; J1644; J1885; J2060; J2250; J2270; J2405; J2704; J3010; J3370; J3490; J7030; J7120; P9016

== ENCOUNTER 2017-04-20 13:47 | Outpatient (CLI) | payer MEDICAID ==
[~2017-04-20 13:47] MED LIST changes: -HYDR-3965 PO; -LORA0.5T PO; -METH5TAB2 PO; +iohexol 300mg/ml 100ml inj. ONE
== END 2017-04-20 23:59 | disposition home or self-care (01) ==
LOC: 64 CT 13:47
PROVIDERS: ATTEND Physician Assistant Surgical
DX: J90 Pleural effusion, not elsewhere classified (principal); R16.1 Splenomegaly, not elsewhere classified; K74.60 Unspecified cirrhosis of liver; J98.11 Atelectasis; R18.8 Other ascites
CPT/HCPCS: 74177; J7030; Q9967